=== PATIENT | female | born 1990 | race Caucasian/White ===

== ENCOUNTER 2018-09-06 16:39 | Inpatient (IN) ==
--- NOTE | 2018-09-06 17:25 | ED ---
History of Present Illness Primary Care Physician: care in [place] Chief Complaint: Contractions History of Present Illness: 28-year-old at 32 weeks and 6 days with a final EDC of October 26, 2018 presents to OB ED complaining of contractions. Note Stratter educational sign language interpreter present for interview patient is Lao-speaking. Patient resides in [place] to deliver in [place] no records available however she appears to be reliable states complicated by gestational diabetes for which she takes metformin. Her other deliveries have been at term uneventful. States she presented to [facility] for delivery Weeks Gestation:: 32 Para: 3 : 6 Review of Systems All other systems reviewed negative except as stated in HPI Medications and Allergies Active Medications: Active Medications Lactated Ringer's (Lr 1000 Ml Inj) 1,000 mls @ 0 mls/hr IV.SIG BOLUS ONE Stop: 09/06/18 17:19 Allergies Allergy/AdvReac Type Severity Reaction Status Date / Time No Known Allergies Allergy Verified 09/06/18 17:08 Exam Vital signs: Intake & Output 09/05/18 09/06/18 09/06/18 18:59 06:59 18:59 Weight 81.647 kg - Constitutional moderate distress - Routine HEENT Exam Head: Present: normocephalic ENT: Present: mucous membranes moist - Routine Neck Exam Present: supple - Routine Chest/Breast/Axilla Exam Chest wall: Absent: tenderness Breast: Absent: tenderness - Routine Respiratory Exam Present: CTA bilaterally - Routine Cardiovascular Exam Present: RRR - Routine Abdominal Exam Present: soft (Gravid/ heart rate category 1) - Routine Exam Comments: Closed 50% effaced out of pelvis -4 (please note proceeded to perform pelvic exam immediately patient appeared to be quite uncomfortable blowing through contractions therefore FFN deferred) Results - Labs CBC & Chem 7: 09/06/18 17:35 Assessment and Plan - Diagnosis (1) uterine contractions in third trimester, antepartum Code(s): O47.03 - False labor before 37 completed weeks of gestation, third trimester Status: Acute (2) Insufficient care in third trimester Code(s): O09.33 - Supervision of with insufficient care, third trimester Status: Acute (3) Gestational diabetes Code(s): O24.419 - Gestational diabetes mellitus in , unspecified control Status: Acute Qualifiers: Gestational diabetes mellitus control: oral hypoglycemic-controlled (4) 32 weeks gestation of Code(s): Z3A.32 - 32 weeks gestation of Status: Acute - Plan Patient made aware plan IV fluids/terbutaline and reassess. Received call from ANALI random Accu-Chek blood sugar [phone] this time called Tracie back interpreting-patient now reports that she is only had 5 visits in [place] she is unaware of the name of the clinic today with the doctor or the hospital where she is to deliver. She stated that she was discharged from care on July 14. Plan insulin regular subcu 8 units reassess-check urine for ketones. A long protracted discussion with the patient it is critical that she continues her care we will provide her with a provider here that would take her at any gestational age, there are concerns since the baby appears to be an LGA since her size greater than dates. Patient was made aware with poorly controlled gestational diabetes risk of maternal morbidity mortality- risk of loss i.e. Discharge Plan - Physicians Team ED Provider: Nuria Boateng Primary Care Provider: NOT REQUIRED, - Discharge Instructions Print Language: Lao
[2018-09-06 18:12] LABS: Baso % (Auto) 0.2 % (0.0-2.0); Eos % (Auto) 0.1 % (0.0-4.0); Hematocrit 34.1 % (35.0-46.0); Hemoglobin 11.7 gm/dL (11.6-15.3); Lymph % (Auto) 11.4 % (9.0-44.0); Mean Corpuscular HGB Conc 34.2 % (32.0-36.0); Mean Corpuscular Hemoglobin 28.5 pg (27.0-34.0); Mean Corpuscular Volume 83.3 fL (80.0-100.0); Mean Platelet Volume 8.4 fL (7.0-11.0); Mono # (Auto) 0.5 th/mm3 (0.0-0.9); Mono % (Auto) 5.5 % (0.0-8.0); Neut # (Auto) 7.4 th/mm3 (1.8-7.7); Neut % (Auto) 82.8 % (16.0-70.0); Platelet Count 208 th/mm3 (150-450); Red Cell Distribution Width 14.1 % (11.6-17.2); White Blood Count 8.9 th/mm3 (4.0-11.0)
[2018-09-06 18:18] LABS: Bilirubin,Urine Negative (Negative); Clarity,Urine Clear (Clear); Color,Urine Straw (Yellw/Straw); Glucose,Urine (UA) 500 or Greater mg/dL (Negative); Leukocyte Esterase,Urine Negative (Negative); Nitrite,Urine Negative (Negative); Specific Gravity,Urine 1.029 (1.002-1.035); Squamous Epithelial Cell,Urine <1 /hpf (0-5)
[2018-09-06 19:25] LABS: Rubella IgG Antibody 45.7 IU/mL (10.0-500.0)
[2018-09-06 19:28] LABS: Hepatitits B Surface Antigen Nonreactive (Nonreactive)
[2018-09-06 20:02] LABS: Hepatitis A IgM Antibody Nonreactive (Nonreactive)
[2018-09-06] MEDS ORDERED: Dextrose 50% in Water 50 ML Vial IV.PUSH PRN (20:19)
[2018-09-06] MEDS ORDERED: Penicillin G Potassium Inj 5,000,000 UNIT in Sodium Chloride 0.9% Inj 100 ML IV.SIG ONE (20:41)
[2018-09-06] MEDS ORDERED: Acetaminophen 325 MG Tablet PO PRN (20:41)
--- NOTE | 2018-09-06 20:52 | P.HPOB ---
Patient Name: Renate Bustillos Date of : 89 Patient Status: Emergency Emergency Provider: Nuria Boateng Date: 09/06/18 17:20 Initialization Date: 09/06/18 17:20 History of Present Illness Primary Care Physician: care in [place] Chief Complaint: Contractions History of Present Illness: 28-year-old at 32 weeks and 6 days with a final EDC of October 26, 2018 presents to OB ED complaining of contractions. Note Stratter hot frame tender present for interview patient is Congolese-speaking. Note after spent spending a significant amount of time with the patient she is bilingual . There are several discrepancies in her history . She first reported she was at [place] , she then now reports her states that her uncle was shot who is from [place] , her care is sketchy , states that she was told not to come back for any further care , earlier told us that she resides in [place] now states that she resides in [facility] . No records available. complicated by gestational diabetes for which she takes metformin, but later discovered that her metformin was given to her prior to and she had been taking it but not prescribed during the . Her other deliveries have been at term uneventful. While in triage managing her contractions her blood sugar was noted to be elevated subsequently given 8 units of regular insulin subQ with no response blood sugar was 277 repeated with 6 units insulin IV and blood glucose was still greater than 240. At this time proceeded to admit to manage blood sugars and possible risk for labor. Weeks Gestation:: 32 Para: 3 : 6 Review of Systems All other systems reviewed negative except as stated in HPI Medications and Allergies Active Medications: Active Medications Lactated Ringer's (Lr 1000 Ml Inj) 1,000 mls @ 0 mls/hr IV.SIG BOLUS ONE Stop: 09/06/18 17:19 Allergies Allergy/AdvReac Type Severity Reaction Status Date / Time No Known Allergies Allergy Verified 09/06/18 17:08 Exam Vital signs: Intake & Output 09/05/18 09/06/18 09/06/18 18:59 06:59 18:59 Weight 81.647 kg - Constitutional moderate distress - Routine HEENT Exam Head: Present: normocephalic ENT: Present: mucous membranes moist - Routine Neck Exam Present: supple - Routine Chest/Breast/Axilla Exam Chest wall: Absent: tenderness Breast: Absent: tenderness - Routine Respiratory Exam Present: CTA bilaterally - Routine Cardiovascular Exam Present: RRR - Routine Abdominal Exam Present: soft (Gravid/ heart rate category 1) - Routine Exam Comments: Closed 50% effaced out of pelvis -4 (please note proceeded to perform pelvic exam immediately patient appeared to be quite uncomfortable blowing through contractions therefore FFN deferred) Results - Labs CBC & Chem 7: 09/06/18 17:35 Assessment and Plan - Diagnosis (1) uterine contractions in third trimester, antepartum Code(s): O47.03 - False labor before 37 completed weeks of gestation, third trimester Status: Acute (2) Insufficient care in third trimester Code(s): O09.33 - Supervision of with insufficient care, third trimester Status: Acute (3) Gestational diabetes Code(s): O24.419 - Gestational diabetes mellitus in , unspecified control Status: Acute Qualifiers: Gestational diabetes mellitus control: oral hypoglycemic-controlled (4) 32 weeks gestation of Code(s): Z3A.32 - 32 weeks gestation of Status: Acute Plan: -Admit -Manage blood sugar -Manage contractions -Diabetic counseling -manager of software development consult Addendum-patient has received a total of 14 units of regular insulin portion given IV apportion given subcutaneous without any significant drop in her blood glucose, her care is sketchy at best and quite insufficient and limited. The only data that she gives which is for certain per patient is her final EDC although she appears LGA. Ultrasound planned in the a.m. sooner if labor signs progress. I have deferred giving her betamethasone because when she presented all the contractions present not in labor and her blood sugars are quite high but if any signs of labor or progression noted will proceed to administer betamethasone and monitor blood sugars closely Patient reported to RN a gush of fluid-Amnisure ordered. Discharge Plan - Physicians Team ED Provider: Nuria Boateng Primary Care Provider: NOT REQUIRED,
[2018-09-06] MEDS ORDERED: Penicillin G Sodium Inj 2,500,000 UNITS in Sodium Chlor 0.9% Inj 100 ML IV.SIG SCH (21:00)
[2018-09-06] MEDS: NIFEdipine 10 MG Capsule PO SCH ×4 (21:00→22:03)
--- NOTE | 2018-09-06 21:54 | P.OBGPN ---
Patient and her have questions-questions about delivery-they were made aware with delivery risk of retinopathy of prematurity, intraventricular hemorrhage respiratory distress syndrome, necrotizing enterocolitis ,cerebral palsy ,NICU admission and further evaluation possible intubation-they were made aware at this time administering p.o. Procardia however deferring betamethasone until patient's blood glucose is improved to decrease the risk of patient developing iatrogenic DKA
[2018-09-06] MEDS ORDERED: Mag Sulf/Water 40 gm/1000 ml 40 GM/1,000 ML BAG IV.CONT ONE (22:43)
[2018-09-06] MEDS ORDERED: Mag Sulf/Water 4 gm/100 ml 100 ML IV.SIG ONE ×3 (22:43→23:07)
[2018-09-06] MEDS: Mag Sulf/Water 40 gm/1000 ml 40 GM/1,000 ML BAG IV.CONT SCH (22:56)
[2018-09-06] MEDS ORDERED: Mag Sulf/Water 40 gm/1000 ml 40 GM/1,000 ML BAG IV.CONT SCH (23:02)
[2018-09-06] MEDS ORDERED: Betamethasone Sod Phos/Acetate Inj 30 MG/5 ML Vial IM ONE (23:09)
--- NOTE | 2018-09-06 23:49 | P.OBGPN ---
MD called for delivery-patient complains of urge to push. Delivery team present patient is in severe distress-however pelvic exam cervix is still closed posterior. Repeat evaluation no uterine tenderness that would be consistent with clinical abruption/no chorio WBC within normal however contractions are present. Blood glucose now 180. Steroids were given in anticipation of possible imminent delivery. Ordered regular insulin 6 units IV push. Thus far she has had a total of 26 units of regular insulin. We will also administer Vistaril 100 IM if there is an anxiety component may be will help ,and continue magnesium sulfate. Limited ultrasound SIUP /Vertex AMANDA 14.4 / posterior placenta /EFW 6 pounds or 2725 g /cervical length 39 mm. Plan complete OB ultrasound in the a.m.
[2018-09-07] MEDS: Insulin NovoLIN Regular Correctional Sugar Inj SQ SCH ×2 (00:23→06:40)
[2018-09-07] MEDS: Penicillin G Sodium Inj 2,500,000 UNITS in Sodium Chlor 0.9% Inj 100 ML IV.SIG SCH ×3 (00:25→08:53)
[2018-09-07 00:55] LABS: Amphetamine Screen,Urine Neg (Neg); Barbiturate Screen,Urine Neg (Neg); Cannabinoid Screen,Urine Neg (Neg); Cocaine Screen,Urine Neg (Neg)
[2018-09-07 00:59] LABS: Opiate Screen,Urine Neg (Neg)
[2018-09-07] MEDS: Prenatal Vit/Ca/Iron/Folic Acid Tablet PO SCH (08:53)
--- NOTE | 2018-09-07 08:55 | P.OBANTE ---
Subjective Interval History: Pt seen and evaluated this morning. at bedside and providing some history. Pt states she has been a diabetic for 2 year prior to this . Her regular OB did not feel comfortable taking care of her due to her high risk and referred her to [facility] in [place], at . She was then seen several times every 15 days for BS control. She has been on Metformin and nothing else. She then lost her Medicaid and was unable to continue care. About 3 weeks ago she started not feeling well. This morning she is feeling better, feeling baby move, no LOF, no contractions. Antepartum ROS: Reports: movement normal Denies: Loss of fluid, Vaginal bleeding, Contractions Objective Vital Signs and I&O: Vital Signs 09/06/18 17:10 09/06/18 17:25 09/06/18 17:30 Temperature 98.4 F Pulse Rate 99 H 82 Respiratory Rate 18 Blood Pressure 136/71 09/06/18 18:25 09/06/18 18:35 09/06/18 19:30 Temperature Pulse Rate 119 H 114 H Respiratory Rate 18 Blood Pressure 09/06/18 19:40 09/06/18 20:11 09/06/18 20:35 Temperature Pulse Rate 111 H 101 H 109 H Respiratory Rate 18 Blood Pressure 129/65 09/06/18 20:40 09/06/18 20:45 09/06/18 20:55 Temperature Pulse Rate 100 H 111 H 108 H Respiratory Rate Blood Pressure 09/06/18 21:20 09/06/18 21:30 09/06/18 21:35 Temperature Pulse Rate 111 H 105 H 106 H Respiratory Rate Blood Pressure 140/68 09/06/18 22:05 09/06/18 22:10 09/06/18 22:36 Temperature Pulse Rate 111 H 113 H 103 H Respiratory Rate Blood Pressure 140/72 09/06/18 22:37 09/06/18 22:40 09/06/18 22:45 Temperature 98.0 F Pulse Rate 101 H Respiratory Rate 20 Blood Pressure 141/63 H 09/06/18 23:00 09/06/18 23:05 09/06/18 23:10 Temperature Pulse Rate 104 H 104 H 108 H Respiratory Rate Blood Pressure 130/69 134/68 133/70 09/06/18 23:25 09/06/18 23:40 09/06/18 23:45 Temperature Pulse Rate 107 H 111 H 105 H Respiratory Rate Blood Pressure 109/43 L 134/107 H 131/58 L 09/06/18 23:50 09/07/18 00:00 09/07/18 00:15 Temperature Pulse Rate 96 H 104 H 106 H Respiratory Rate Blood Pressure 129/68 09/07/18 00:18 09/07/18 00:25 09/07/18 00:35 Temperature Pulse Rate 109 H 103 H Respiratory Rate 20 Blood Pressure 151/67 H 09/07/18 00:40 09/07/18 00:45 09/07/18 00:50 Temperature Pulse Rate 102 H 102 H 104 H Respiratory Rate Blood Pressure 09/07/18 00:55 09/07/18 01:05 09/07/18 01:25 Temperature Pulse Rate 100 H 100 H 99 H Respiratory Rate Blood Pressure 127/54 L 131/51 L 09/07/18 01:35 09/07/18 01:40 09/07/18 01:45 Temperature Pulse Rate 101 H 99 H 99 H Respiratory Rate Blood Pressure 09/07/18 02:05 09/07/18 02:10 09/07/18 02:20 Temperature Pulse Rate 98 H 104 H 107 H Respiratory Rate Blood Pressure 125/60 09/07/18 02:25 09/07/18 02:30 09/07/18 03:25 Temperature Pulse Rate 95 H 99 H 106 H Respiratory Rate Blood Pressure 120/72 121/51 L 130/64 09/07/18 03:35 09/07/18 03:40 09/07/18 03:50 Temperature Pulse Rate 105 H 103 H 113 H Respiratory Rate Blood Pressure 09/07/18 03:55 09/07/18 04:25 09/07/18 04:30 Temperature 98.2 F Pulse Rate 102 H 94 H Respiratory Rate 16 Blood Pressure 126/67 09/07/18 04:35 09/07/18 04:40 09/07/18 05:15 Temperature Pulse Rate 92 H 94 H 96 H Respiratory Rate Blood Pressure 122/52 L 123/69 09/07/18 05:35 09/07/18 05:55 09/07/18 06:50 Temperature Pulse Rate 94 H 95 H 94 H Respiratory Rate Blood Pressure 119/63 120/66 09/07/18 06:55 09/07/18 07:10 09/07/18 07:20 Temperature Pulse Rate 94 H 96 H 96 H Respiratory Rate Blood Pressure 118/56 L 09/07/18 07:25 09/07/18 07:30 09/07/18 08:25 Temperature 99.2 F Pulse Rate 97 H 95 H Respiratory Rate 16 Blood Pressure 113/55 L 115/50 L Intake & Output 09/06/18 09/07/18 09/07/18 18:59 06:59 18:59 Intake Total 2400 / 2400 Balance 2400 / 2400 Weight 81.647 kg Intake: IV 2400 / 2400 LR 1000 mL Inj 1,000 ML @ 125 1000 / 1000 mls/hr IV.CONT .Q8H [facility] Rx#: [id number] LR 1000 mL Inj 1,000 ML @ Wide 1000 / 1000 Open IV.SIG BOLUS ONE Rx#: [id number] Magnesium Sulfate/Water 4 gm/ 100 / 100 100 ml Premix 100 ML @ 0 mls/hr IV.SIG .STK-MED ONE Rx#: [id number] Pfizerpen-G Inj 5,000,000 UNIT 100 / 100 In NS Inj 100 ML @ 200 mls/hr IV.SIG ONCE ONE Rx#:[id number] Penicillin G Sodium Inj 2,500, 200 / 200 000 UNITS In NS Inj 100 ML @ 200 mls/hr IV.SIG Q4H [facility] Rx#: [id number] Lab and Micro Results: Laboratory Results - last 24 hr 09/06/18 09/06/18 09/06/18 17:35 17:35 17:35 WBC 8.9 RBC 4.10 Hgb 11.7 Hct 34.1 L MCV 83.3 MCH 28.5 MCHC 34.2 RDW 14.1 Plt Count 208 MPV 8.4 Neut % (Auto) 82.8 H Lymph % (Auto) 11.4 [place] % (Auto) 5.5 Eos % (Auto) 0.1 Baso % (Auto) 0.2 Neut # (Auto) 7.4 Lymph # (Auto) 1.0 [place] # (Auto) 0.5 Eos # (Auto) 0.0 Baso # (Auto) 0.0 WBC Differential . Differential Comment Auto diff final POC Glucose Urine Color Urine Clarity Urine pH Ur Specific [place] Urine Protein Urine Glucose (UA) Urine Ketones Urine Occult Blood Urine Nitrate Urine Bilirubin Urine Urobilinogen Ur Leukocyte Esterase Urine RBC Urine WBC Ur Squamous Epith Cells Micro UA Comment Ur Microscopic Review Urine Culture Comments Urine Opiates Screen Ur Barbiturates Screen Ur Amphetamines Screen U Benzodiazepines Scrn Urine Cocaine Screen U Cannabinoids Screen Chlam trachomat DNA PCR Hepatitis A IgM Ab Nonreactive Hep Bs Antigen Nonreactive Hep B Core IgM Ab Nonreactive Hep C IgG Ab Nonreactive HIV 1&2 Ab/P24 Ag 4thGn Nonreactive N.gonorrhoeae DNA (PCR) Rubella Immunity Screen Immune Rubella Ab, Quant 45.7 Blood Type Blood Type Recheck Antibody Screen 09/06/18 09/06/18 09/06/18 17:35 17:35 17:35 WBC RBC Hgb Hct MCV MCH MCHC RDW Plt Count MPV Neut % (Auto) Lymph % (Auto) [place] % (Auto) Eos % (Auto) Baso % (Auto) Neut # (Auto) Lymph # (Auto) [place] # (Auto) Eos # (Auto) Baso # (Auto) WBC Differential Differential Comment POC Glucose 304 H Urine Color Urine Clarity Urine pH Ur Specific [place] Urine Protein Urine Glucose (UA) Urine Ketones Urine Occult Blood Urine Nitrate Urine Bilirubin Urine Urobilinogen Ur Leukocyte Esterase Urine RBC Urine WBC Ur Squamous Epith Cells Micro UA Comment Ur Microscopic Review Urine Culture Comments Urine Opiates Screen Ur Barbiturates Screen Ur Amphetamines Screen U Benzodiazepines Scrn Urine Cocaine Screen U Cannabinoids Screen Chlam trachomat DNA PCR Not detected Hepatitis A IgM Ab Hep Bs Antigen Hep B Core IgM Ab Hep C IgG Ab HIV 1&2 Ab/P24 Ag 4thGn N.gonorrhoeae DNA (PCR) Not detected Rubella Immunity Screen Rubella Ab, Quant Blood Type O Positive Blood Type Recheck Required Antibody Screen Negative 09/06/18 09/06/18 09/06/18 17:35 17:35 17:36 WBC RBC Hgb Hct MCV MCH MCHC RDW Plt Count MPV Neut % (Auto) Lymph % (Auto) [place] % (Auto) Eos % (Auto) Baso % (Auto) Neut # (Auto) Lymph # (Auto) [place] # (Auto) Eos # (Auto) Baso # (Auto) WBC Differential Differential Comment POC Glucose 303 H Urine Color Straw Urine Clarity Clear Urine pH 6.0 Ur Specific [place] 1.029 Urine Protein Negative Urine Glucose (UA) 500 or greater Urine Ketones 80 or greater H Urine Occult Blood Negative Urine Nitrate Negative Urine Bilirubin Negative Urine Urobilinogen Less than 2 Ur Leukocyte Esterase Negative Urine RBC 1 Urine WBC Less than 1 Ur Squamous Epith Cells <1 Micro UA Comment Culture not ind Ur Microscopic Review Not Reportable Urine Culture Comments Culture not ind Urine Opiates Screen Neg Ur Barbiturates Screen Neg Ur Amphetamines Screen Neg U Benzodiazepines Scrn Neg Urine Cocaine Screen Neg U Cannabinoids Screen Neg [place]lam trachomat DNA PCR Hepatitis A IgM Ab Hep Bs Antigen Hep B Core IgM Ab Hep C IgG Ab HIV 1&2 Ab/P24 Ag 4thGn N.gonorrhoeae DNA (PCR) Rubella Immunity Screen Rubella Ab, Quant Blood Type Blood Type Recheck Antibody Screen 09/06/18 09/06/18 09/06/18 18:56 20:10 21:14 WBC RBC Hgb Hct MCV MCH MCHC RDW Plt Count MPV Neut % (Auto) Lymph % (Auto) [place] % (Auto) Eos % (Auto) Baso % (Auto) Neut # (Auto) Lymph # (Auto) [place] # (Auto) Eos # (Auto) Baso # (Auto) WBC Differential Differential Comment POC Glucose 270 H 244 H 213 H Urine Color Urine Clarity Urine pH Ur Specific [place] Urine Protein Urine Glucose (UA) Urine Ketones Urine Occult Blood Urine Nitrate Urine Bilirubin Urine Urobilinogen Ur Leukocyte Esterase Urine RBC Urine WBC Ur Squamous Epith Cells Micro UA Comment Ur Microscopic Review Urine Culture Comments Urine Opiates Screen Ur Barbiturates Screen Ur Amphetamines Screen U Benzodiazepines Scrn Urine Cocaine Screen U Cannabinoids Screen [place]lam trachomat DNA PCR Hepatitis A IgM Ab Hep Bs Antigen Hep B Core IgM Ab Hep C IgG Ab HIV 1&2 Ab/P24 Ag 4thGn N.gonorrhoeae DNA (PCR) Rubella Immunity Screen Rubella Ab, Quant Blood Type Blood Type Recheck Antibody Screen 09/06/18 09/06/18 09/07/18 22:06 23:24 00:19 WBC RBC Hgb Hct MCV MCH MCHC RDW Plt Count MPV Neut % (Auto) Lymph % (Auto) [place] % (Auto) Eos % (Auto) Baso % (Auto) Neut # (Auto) Lymph # (Auto) [place] # (Auto) Eos # (Auto) Baso # (Auto) WBC Differential Differential Comment POC Glucose 180 H 180 H 171 H Urine Color Urine Clarity Urine pH Ur Specific [place] Urine Protein Urine Glucose (UA) Urine Ketones Urine Occult Blood Urine Nitrate Urine Bilirubin Urine Urobilinogen Ur Leukocyte Esterase Urine RBC Urine WBC Ur Squamous Epith Cells Micro UA Comment Ur Microscopic Review Urine Culture Comments Urine Opiates Screen Ur Barbiturates Screen Ur Amphetamines Screen U Benzodiazepines Scrn Urine Cocaine Screen U Cannabinoids Screen [place]lam trachomat DNA PCR Hepatitis A IgM Ab Hep Bs Antigen Hep B Core IgM Ab Hep C IgG Ab HIV 1&2 Ab/P24 Ag 4thGn N.gonorrhoeae DNA (PCR) Rubella Immunity Screen Rubella Ab, Quant Blood Type Blood Type Recheck Antibody Screen 09/07/18 09/07/18 09/07/18 04:57 05:50 06:25 WBC RBC Hgb Hct MCV MCH MCHC RDW Plt Count MPV Neut % (Auto) Lymph % (Auto) [place] % (Auto) Eos % (Auto) Baso % (Auto) Neut # (Auto) Lymph # (Auto) [place] # (Auto) Eos # (Auto) Baso # (Auto) WBC Differential Differential Comment POC Glucose 232 H 210 H 203 H Urine Color Urine Clarity Urine pH Ur Specific [place] Urine Protein Urine Glucose (UA) Urine Ketones Urine Occult Blood Urine Nitrate Urine Bilirubin Urine Urobilinogen Ur Leukocyte Esterase Urine RBC Urine WBC Ur Squamous Epith Cells Micro UA Comment Ur Microscopic Review Urine Culture Comments Urine Opiates Screen Ur Barbiturates Screen Ur Amphetamines Screen U Benzodiazepines Scrn Urine Cocaine Screen U Cannabinoids Screen [place]lam trachomat DNA PCR Hepatitis A IgM Ab Hep Bs Antigen Hep B Core IgM Ab Hep C IgG Ab HIV 1&2 Ab/P24 Ag 4thGn N.gonorrhoeae DNA (PCR) Rubella Immunity Screen Rubella Ab, Quant Blood Type Blood Type Recheck Antibody Screen 09/07/18 07:06 WBC RBC Hgb Hct MCV MCH MCHC RDW Plt Count MPV Neut % (Auto) Lymph % (Auto) [place] % (Auto) Eos % (Auto) Baso % (Auto) Neut # (Auto) Lymph # (Auto) [place] # (Auto) Eos # (Auto) Baso # (Auto) WBC Differential Differential Comment POC Glucose 188 H Urine Color Urine Clarity Urine pH Ur Specific [place] Urine Protein Urine Glucose (UA) Urine Ketones Urine Occult Blood Urine Nitrate Urine Bilirubin Urine Urobilinogen Ur Leukocyte Esterase Urine RBC Urine WBC Ur Squamous Epith Cells Micro UA Comment Ur Microscopic Review Urine Culture Comments Urine Opiates Screen Ur Barbiturates Screen Ur Amphetamines Screen U Benzodiazepines Scrn Urine Cocaine Screen U Cannabinoids Screen [place]lam trachomat DNA PCR Hepatitis A IgM Ab Hep Bs Antigen Hep B Core IgM Ab Hep C IgG Ab HIV 1&2 Ab/P24 Ag 4thGn N.gonorrhoeae DNA (PCR) Rubella Immunity Screen Rubella Ab, Quant Blood Type Blood Type Recheck Antibody Screen Physical Exam: GENERAL: Well-nourished, well-developed patient. Calm CARDIOVASCULAR: Regular rate and rhythm without murmurs, gallops, or rubs. RESPIRATORY: Breath sounds equal bilaterally. No accessory muscle use. ABDOMEN/GI: Abdomen soft, non-tender. EXTREMITIES: No cyanosis or edema, non-tender, without signs of DVT. Assessment and Plan - Diagnosis (1) Maternal pregestational diabetes classes B through R, antepartum Code(s): O24.319 - Unspecified pre-existing diabetes mellitus in , unspecified trimester Status: Acute (2) 32 weeks gestation of Code(s): Z3A.32 - 32 weeks gestation of Status: Acute (3) uterine contractions in third trimester, antepartum Code(s): O47.03 - False labor before 37 completed weeks of gestation, third trimester Status: Acute (4) Insufficient care in third trimester Code(s): O09.33 - Supervision of with insufficient care, third trimester Status: Acute - Plan 28 yr old at 33/0 with uncontrolled pregestational diabetes and limited care presented yesterday with contractions. S/p magnesium sulfate, Procardia, and betamethasone. Plan: - Continue NPH 10 units BID - Continue Novolog insulin sliding scale (medium) - Continue IVF LR at 75ml/hr - Continue Magnesium Sulfate - Complete OB US ordered this morning - CM consulted - Will attempt to obtain records from [facility]
[2018-09-07] MEDS: Sod Chloride 0.9% Inj 1,000 ML IV.CONT SCH (10:55)
[2018-09-07] MEDS ORDERED: Dextrose 50% in Water 50 ML Vial IV.PUSH PRN (11:10)
[2018-09-07] MEDS ORDERED: INSULIN REGULAR IV.CONT PRN (11:10)
[2018-09-07] MEDS ORDERED: SODIUM CHLOR 0.9% IV.CONT PRN (11:10)
[2018-09-07] MEDS ORDERED: fentaNYL Citrate Inj 100 MCG/2 ML Ampul IV.PUSH ONE (11:34)
[2018-09-07] MEDS: Insulin Regular (For Infusion) 100 UNIT in Sodium Chlor 0.9% Inj 99 ML IV.CONT PRN (12:20)
[2018-09-07] MEDS: Mag Sulf/Water 40 gm/1000 ml 40 GM/1,000 ML BAG IV.CONT SCH (17:41)
[2018-09-07] MEDS ORDERED: Betamethasone Sod Phos/Acetate Inj 30 MG/5 ML Vial IM ONE (20:00)
[2018-09-08] MEDS: Insulin Regular (For Infusion) 100 UNIT in Sodium Chlor 0.9% Inj 99 ML IV.CONT PRN (00:40)
[2018-09-08] MEDS: Sod Chloride 0.9% Inj 1,000 ML IV.CONT SCH ×2 (00:40→18:15)
[2018-09-08] MEDS ORDERED: Dextrose 10% in Water Inj 500 ML IV.SIG ONE (02:45)
[2018-09-08] MEDS: Mag Sulf/Water 40 gm/1000 ml 40 GM/1,000 ML BAG IV.CONT SCH (06:47)
[2018-09-08] MEDS: Prenatal Vit/Ca/Iron/Folic Acid Tablet PO SCH (08:14)
--- NOTE | 2018-09-08 08:47 | P.OBANTE ---
Subjective Interval History: Pt has no complaints today, she's feeling better. Denies any contractions this morning, no gush of fluid, no bleeding. Eating/ drinking ok. Antepartum ROS: Denies: Loss of fluid, Vaginal bleeding, Contractions Objective Vital Signs and I&O: Vital Signs 09/07/18 09:25 09/07/18 09:45 09/07/18 10:15 Temperature Pulse Rate 97 H 101 H 101 H Respiratory Rate Blood Pressure 111/62 118/61 123/60 09/07/18 10:25 09/07/18 11:00 09/07/18 11:30 Temperature 98.1 F Pulse Rate 103 H 108 H 104 H Respiratory Rate 16 16 Blood Pressure 126/68 130/50 L 09/07/18 12:00 09/07/18 12:05 09/07/18 12:45 Temperature Pulse Rate 104 H 107 H 111 H Respiratory Rate Blood Pressure 133/76 122/69 09/07/18 12:55 09/07/18 13:25 09/07/18 13:27 Temperature Pulse Rate 108 H 109 H Respiratory Rate 16 Blood Pressure 135/65 09/07/18 13:40 09/07/18 14:05 09/07/18 14:25 Temperature Pulse Rate 107 H 103 H 103 H Respiratory Rate Blood Pressure 131/54 L 09/07/18 14:30 09/07/18 14:40 09/07/18 14:45 Temperature Pulse Rate 103 H 101 H 104 H Respiratory Rate 16 Blood Pressure 124/59 L 09/07/18 15:15 09/07/18 15:25 09/07/18 15:50 Temperature Pulse Rate 102 H 110 H 103 H Respiratory Rate Blood Pressure 123/55 L 123/55 L 09/07/18 15:55 09/07/18 16:15 09/07/18 16:22 Temperature 99.2 F Pulse Rate 106 H 105 H Respiratory Rate 14 Blood Pressure 124/63 09/07/18 16:25 09/07/18 17:20 09/07/18 17:30 Temperature Pulse Rate 97 H 106 H 101 H Respiratory Rate 16 Blood Pressure 116/64 126/64 09/07/18 18:25 09/07/18 18:30 09/07/18 18:55 Temperature Pulse Rate 101 H 101 H 101 H Respiratory Rate Blood Pressure 123/60 09/07/18 19:25 09/07/18 19:46 09/07/18 19:50 Temperature 98.9 F Pulse Rate 101 H 97 H Respiratory Rate 18 Blood Pressure 123/64 09/07/18 20:15 09/07/18 20:20 09/07/18 20:25 Temperature Pulse Rate 101 H 98 H 97 H Respiratory Rate Blood Pressure 130/64 09/07/18 20:45 09/07/18 21:05 09/07/18 21:10 Temperature Pulse Rate 100 H 102 H 95 H Respiratory Rate Blood Pressure 119/61 121/67 09/07/18 21:28 09/07/18 21:30 09/07/18 21:40 Temperature Pulse Rate 99 H 98 H 103 H Respiratory Rate 18 Blood Pressure 126/66 09/07/18 22:30 09/07/18 22:35 09/07/18 22:40 Temperature Pulse Rate 94 H 100 H 100 H Respiratory Rate 18 Blood Pressure 118/64 09/07/18 22:45 09/07/18 23:00 09/07/18 23:15 Temperature Pulse Rate 97 H 98 H 99 H Respiratory Rate Blood Pressure 119/63 09/07/18 23:25 09/07/18 23:30 09/07/18 23:35 Temperature 98.1 F Pulse Rate 94 H 102 H 92 H Respiratory Rate 18 Blood Pressure 122/63 09/07/18 23:40 09/08/18 00:00 09/08/18 00:25 Temperature Pulse Rate 99 H 100 H 101 H Respiratory Rate Blood Pressure 111/83 09/08/18 00:30 09/08/18 00:45 09/08/18 01:05 Temperature Pulse Rate 88 90 89 Respiratory Rate Blood Pressure 110/67 118/64 09/08/18 01:20 09/08/18 01:28 09/08/18 01:30 Temperature Pulse Rate 88 91 H 88 Respiratory Rate 18 Blood Pressure 118/67 09/08/18 02:20 09/08/18 02:30 09/08/18 03:15 Temperature Pulse Rate 88 93 H 91 H Respiratory Rate 18 Blood Pressure 118/67 116/61 118/68 09/08/18 03:20 09/08/18 03:25 09/08/18 03:29 Temperature 98.6 F Pulse Rate 90 95 H Respiratory Rate 18 Blood Pressure 09/08/18 03:30 09/08/18 03:35 09/08/18 03:45 Temperature Pulse Rate 89 92 H 95 H Respiratory Rate Blood Pressure 117/62 09/08/18 03:55 09/08/18 04:25 09/08/18 04:30 Temperature Pulse Rate 89 95 H 100 H Respiratory Rate Blood Pressure 118/72 113/63 09/08/18 04:40 09/08/18 04:45 09/08/18 04:50 Temperature Pulse Rate 84 83 85 Respiratory Rate Blood Pressure 09/08/18 04:55 09/08/18 05:00 09/08/18 05:05 Temperature Pulse Rate 85 84 84 Respiratory Rate Blood Pressure 109/63 09/08/18 05:25 09/08/18 05:30 09/08/18 05:50 Temperature Pulse Rate 85 84 82 Respiratory Rate Blood Pressure 108/60 09/08/18 06:20 09/08/18 06:25 09/08/18 06:35 Temperature Pulse Rate 85 85 84 Respiratory Rate Blood Pressure 115/58 L 105/59 L 09/08/18 06:50 09/08/18 06:55 09/08/18 07:10 Temperature Pulse Rate 80 82 83 Respiratory Rate Blood Pressure 115/62 09/08/18 07:30 09/08/18 07:45 09/08/18 08:26 Temperature Pulse Rate 81 83 83 Respiratory Rate 17 18 Blood Pressure 113/60 113/63 Intake & Output 09/07/18 09/08/18 09/08/18 18:59 06:59 18:59 Intake Total 1000 / 1000 1100 / 1100 850 / 850 Balance 1000 / 1000 1100 / 1100 850 / 850 Intake: IV 1000 / 1000 1100 / 1100 850 / 850 NovoLIN R (IV Infusion) 100 100 / 100 UNIT In NS Inj 99 ML @ 2 UNITS/ HR 2 mls/hr IV.CONT TITRATE PRN Rx#:[id number] Magnesium Sulfate/Water 40 gm/ 1000 / 1000 850 / 850 1000 ml Premix 40 gm In 1,000 ml @ 2.5 GM/HR 62.5 mls/hr IV. CONT Q24H EDGAR Rx#:[id number] NS Inj 1,000 ML @ 75 mls/hr IV. 1000 / 1000 CONT .[id number] EDGAR Rx#:[id number] Lab and Micro Results: Laboratory Results - last 24 hr 09/06/18 09/07/1809/07/18 17:35 08:45 10:52 POC Glucose 220 H 242 H RPR Nonreactive 09/07/18 09/07/18 09/07/18 12:23 13:25 14:41 POC Glucose 241 H 245 H 254 H RPR 09/07/18 09/07/18 09/07/18 16:21 17:22 18:28 POC Glucose 209 H 207 H 231 H RPR 09/07/18 09/07/18 09/07/18 19:28 20:29 21:30 POC Glucose 248 H 169 H 157 H RPR 09/07/18 09/07/18 09/08/18 22:30 23:28 00:25 POC Glucose 165 H 154 H 126 H RPR 09/08/18 09/08/18 09/08/18 01:26 02:28 03:26 POC Glucose 111 H 74 98 RPR 09/08/18 09/08/18 09/08/18 04:28 05:30 06:28 POC Glucose 117 H 126 H 135 H RPR 09/08/18 08:23 POC Glucose 99 RPR Physical Exam: GENERAL: Well-nourished, well-developed patient. CARDIOVASCULAR: Regular rate and rhythm without murmurs, gallops, or rubs. RESPIRATORY: Breath sounds equal bilaterally. No accessory muscle use. ABDOMEN/GI: Abdomen soft, non-tender. Membranes: intact Uterine Contractions: absent FHT's: Category: Baseline: 120 Reactive: yes Variability: moderate Decels: no EXTREMITIES: No cyanosis or edema, non-tender, without signs of DVT. Assessment and Plan - Diagnosis (1) Maternal pregestational diabetes classes B through R, antepartum Code(s): O24.319 - Unspecified pre-existing diabetes mellitus in , unspecified trimester Status: Acute (2) 32 weeks gestation of Code(s): Z3A.32 - 32 weeks gestation of Status: Acute (3) uterine contractions in third trimester, antepartum Code(s): O47.03 - False labor before 37 completed weeks of gestation, third trimester Status: Acute (4) Insufficient care in third trimester Code(s): O09.33 - Supervision of with insufficient care, third trimester Status: Acute - Plan 28 yr old at with uncontrolled pre-gestational diabetes and limited care. s/p Betamethasone x 2 (09/06-09/07) s/p Magnesium for 24hrs US showed EFW >97% percentile 2709gr. No anomalies BPP 05/20 Plan: - Start 100 units SQ insulin of 75 units NPH/ 25 units Regular insulin BID - Continue insulin drip 5 units/ hr until dinner w/ BS check q2hr - Continue IVF NS at 75ml/hr -
[2018-09-09] MEDS: Sod Chloride 0.9% Inj 1,000 ML IV.CONT SCH (06:51)
--- NOTE | 2018-09-09 09:33 | P.OBANTE ---
Subjective Interval History: Feeling much better today. No complains this morning. Wants to go home as soon as possible. Discussed she will need to be able to get insulin. She is eating well, ambulating, denies contractions, feeling baby move. Antepartum ROS: Reports: movement normal, Contractions Denies: Loss of fluid, Vaginal bleeding Objective Vital Signs and I&O: Vital Signs 09/08/18 10:25 09/08/18 11:25 09/08/18 12:05 Temperature Pulse Rate 99 H 86 91 H Respiratory Rate Blood Pressure 09/08/18 12:11 09/08/18 12:25 09/08/18 13:55 Temperature 98.2 F Pulse Rate 92 H 92 H 90 Respiratory Rate 17 Blood Pressure 121/67 09/08/18 14:55 09/08/18 15:52 09/08/18 15:55 Temperature 98.6 F Pulse Rate 88 87 90 Respiratory Rate 17 Blood Pressure 118/64 09/08/18 16:55 09/08/18 17:55 09/08/18 18:20 Temperature Pulse Rate 91 H 96 H 95 H Respiratory Rate Blood Pressure 09/08/18 19:50 09/08/18 19:55 09/08/18 20:19 Temperature Pulse Rate 90 94 H Respiratory Rate 18 Blood Pressure 121/64 09/08/18 20:20 09/08/18 20:25 09/08/18 20:40 Temperature 97.5 F L Pulse Rate 89 96 H 86 Respiratory Rate Blood Pressure 09/09/18 00:05 09/09/18 05:11 09/09/18 05:14 Temperature 98.4 F 98.1 F Pulse Rate 90 83 Respiratory Rate 18 18 Blood Pressure 118/65 122/69 09/09/18 05:15 09/09/18 05:20 09/09/18 05:55 Temperature Pulse Rate 92 H 86 104 H Respiratory Rate Blood Pressure 09/09/18 06:15 09/09/18 06:25 09/09/18 06:30 Temperature Pulse Rate 84 93 H 89 Respiratory Rate Blood Pressure 09/09/18 06:55 09/09/18 07:20 09/09/18 07:39 Temperature 97.8 F Pulse Rate 79 72 Respiratory Rate Blood Pressure 09/09/18 07:41 Temperature Pulse Rate 78 Respiratory Rate 18 Blood Pressure 119/66 Intake & Output 1109/09/18 09/09/18 18:59 06:59 18:59 Intake Total 1850 / 1850 1000 / 1000 Balance 1850 / 1850 1000 / 1000 Intake: IV 1850 / 185 1000 / 1000 Magnesium Sulfate/Water 40 gm/ 850 / 850 1000 ml Premix 40 gm In 1,000 ml @ 2.5 GM/HR 62.5 mls/hr IV. CONT Q24H EDGAR Rx#:[id number] NS Inj 1,000 ML @ 75 mls/hr IV. 1000 / 1000 1000 / 1000 CONT .[id number] EDGAR Rx#:[id number] Lab and Micro Results: Laboratory Results - last 24 hr 09/08/18 09/08/18 09/08/18 10:34 12:02 15:04 POC Glucose 162 H 122 H 172 H 09/08/18 09/08/18 09/08/18 17:02 20:19 22:11 POC Glucose 143 H 127 H 115 H 09/09/18 09/09/18 09/09/18 00:04 02:10 06:17 POC Glucose 123 H 116 H 109 Physical Exam: GENERAL: Well-nourished, well-developed patient. CARDIOVASCULAR: Regular rate and rhythm without murmurs, gallops, or rubs. RESPIRATORY: Breath sounds equal bilaterally. No accessory muscle use. ABDOMEN/GI: Abdomen soft, non-tender. GENITOURINARY: Cervix: closed, 50%, -3 FHT's: Category: 1 Baseline: 140 Reactive: yes Variability: moderate Decels: absent EXTREMITIES: No cyanosis or edema, non-tender, without signs of DVT. Assessment and Plan - Diagnosis (1) Maternal pregestational diabetes classes B through R, antepartum Code(s): O24.319 - Unspecified pre-existing diabetes mellitus in , unspecified trimester Status: Acute (2) 32 weeks gestation of Code(s): Z3A.32 - 32 weeks gestation of Status: Acute (3) uterine contractions in third trimester, antepartum Code(s): O47.03 - False labor before 37 completed weeks of gestation, third trimester Status: Acute (4) Insufficient care in third trimester Code(s): O09.33 - Supervision of with insufficient care, third trimester Status: Acute - Plan 28 yr old at with uncontrolled pre-gestational diabetes and limited care. s/p Betamethasone x 2 (09/06-09/07) s/p Magnesium for 24hrs US showed EFW >97% percentile 2709gr. No anomalies BPP 05/20 Plan: - Continue 90 units SQ insulin NPH and 40 units Regular insulin BID - Working with CM to get insulin for home usage - Education given at bedside on how to administer insulin - [facility] appointment will be [facility] for next week - Anticipate discharge home today
[2018-09-09] MEDS: Prenatal Vit/Ca/Iron/Folic Acid Tablet PO SCH (09:48)
[2018-09-09 16:49] LABS: Hemoglobin A1c 7.9 % (4.3-6.0)
== END 2018-09-09 17:48 | disposition home or self-care (01) ==
LOC: HOBED 16:39 → H2E 20:19 → HOBED 20:20 → H2E 20:59
PROVIDERS: ADMIT Obstetrics & Gynecology; ATTEND Obstetrics & Gynecology

== ENCOUNTER 2018-10-19 08:44 | Inpatient (IN) ==
[2018-10-19] MEDS ORDERED: Sodium Chlor 0.9% Inj 500 ML IV.SIG PRN (09:32)
[2018-10-19] MEDS ORDERED: fentaNYL Citrate Inj 100 MCG/2 ML Ampul IV.PUSH PRN ×2 (09:32)
[2018-10-19] MEDS ORDERED: Naloxone Inj 0.4 MG/ML Vial IV.PUSH PRN ×2 (09:32→12:55)
[2018-10-19] MEDS ORDERED: Sod Chloride 0.9% Inj 1,000 ML IV.CONT PRN (09:32)
[2018-10-19] MEDS ORDERED: Dextrose 50% in Water 50 ML Vial IV.PUSH PRN (09:36)
[2018-10-19] MEDS ORDERED: Oxytocin 30 Units/500ml Premix 30 UNITS/500 ML BAG IV.SIG PRN (09:37)
--- NOTE | 2018-10-19 09:42 | P.HPOB ---
History of Present Illness Primary Care Physician: No Primary Care Physician Chief Complaint: I am here for a History of Present Illness: 28-year-old at 39 weeks presents for secondary to breech presentation. History of type 2 diabetes care at [facility]. Bedside ultrasound Vertex presentation Weeks Gestation:: 39 Para: 3 : 4 - Inpatient Certification I certify that the inpatient services were ordered in accordance with Medicare regulations governing the order. This includes certification that hospital inpatient services are reasonable and necessary and in the case of services not specified as inpatient-only under 42 CFR 419.22(n), that they are appropriately provided as inpatient services in accordance to with the 2-midnight benchmark under 43 CFR 412.3(e) Estimated Total Length of Stay (Days): 2 Plans for Post Hospital Care: Home Review of Systems All other systems reviewed negative except as stated in HPI [facility] - Medical History Medical History: Medical History (Last Updated 10/06/18 @ 19:56 by Donell Couch MD) Gestational diabetes mellitus (GDM) affecting fourth - Tobacco History Smoking Status: Never smoker - Alcohol History How Often Do You Have a Drink Containing Alcohol: Never - Substance Use History Substance History: No History of Abuse - Travel History History of Recent Travel: No Medications and Allergies Active Medications: Active Medications Citric Acid/Sodium Citrate (Sodium Citrate/Citric Acid Liq) 30 ml PO STRATEGY ANALYST [facility] Stop: 10/23/18 09:44 Dextrose (D50w Vial) 50 ml IV.PUSH UNSCH PRN PRN Reason: PER HYPOGLYCEMIA PROTOCOL Fentanyl Citrate (Fentanyl Inj) 50 mcg IV.PUSH Q1H PRN PRN Reason: Pain Scale 3 - 5 Fentanyl Citrate (Fentanyl Inj) 100 mcg IV.PUSH Q1H PRN PRN Reason: PAIN SCALE 6 TO 10 Glucagon (Glucagon Inj) 1 mg OTHER PRN PRN PRN Reason: for Hypoglycemia Protocol Lactated Ringer's (Lr 1000 Ml Inj) 1,000 mls @ 125 mls/hr IV.CONT .Q8H [facility] Lactated Ringer's (Lr 1000 Ml Inj) 1,000 mls @ 3,000 mls/hr IV.SIG UNSCH PRN PRN Reason: compromise or epidural Sodium Chloride (Ns Inj) 500 mls @ 1,000 mls/hr IV.SIG UNSCH PRN PRN Reason: SEE LABEL COMMENTS Sodium Chloride (Ns Inj) 1,000 mls @ 100 mls/hr IV.CONT .Q10H PRN PRN Reason: SEE LABEL COMMENTS Oxytocin (Pitocin 30 Units/Ns 500 Ml Premix) 30 units in 500 mls @ 999 mls/hr IV.SIG BOLUS ONE Stop: 10/19/18 10:02 Oxytocin (Pitocin 30 Units/Ns 500 Ml Premix) 30 units in 500 mls @ 2 mls/hr IV.SIG TITRATE PRN; Protocol PRN Reason: For induction of labor Insulin Aspart (Novolog Insulin Correctional Sugar Inj) 0 unit SQ ACHS EDGAR; Protocol Lidocaine HCl (Xylocaine 1% Inj) 0.1 ml I-DERMAL PRN PRN PRN Reason: For IV start Stop: 10/22/18 09:31 Lidocaine HCl (Xylocaine 1% Inj) 10 ml INFILTRATN PRN PRN PRN Reason: For episiotomy repair Stop: 10/21/18 09:31 Mineral Oil (Muri-Lube Oil) 10 ml TOPICAL PRN PRN PRN Reason: PRN perineal massage Naloxone HCl (Narcan Inj) 0.1 mg IV.PUSH Q2M PRN PRN Reason: for opiate reversal Allergies Allergy/AdvReac Type Severity Reaction Status Date / Time No Known Allergies Allergy Verified 09/06/18 17:08 Exam Vital signs: Vital Signs 10/19/18 09:10 10/19/18 09:25 10/19/18 09:32 Temperature 97.9 F Pulse Rate 90 94 H 87 Respiratory Rate 18 Blood Pressure 142/85 H 10/19/18 09:35 Temperature Pulse Rate 86 Respiratory Rate Blood Pressure Narrative: GENERAL: Well-nourished, well-developed patient. SKIN: Warm and dry. HEAD: Normocephalic and atraumatic. EYES: No scleral icterus. No injection or drainage. ENT: No nasal drainage noted. Mucous membranes pink. Airway patent. NECK: Supple, trachea midline. No JVD. CARDIOVASCULAR: Regular rate and rhythm without murmurs, gallops, or rubs. RESPIRATORY: Breath sounds equal bilaterally. No accessory muscle use. BREASTS: Bilateral exam showed no masses , no retractions, no nipple discharge. ABDOMEN/GI: Abdomen soft, non-tender, bowel sounds present, no rebound, no guarding Gravid to 39 weeks size Fundal Height: 39 GENITOURINARY: External Genitalia: intact and normal in appearance BUS glands: Unremarkable Cervix: Soft Dilatation: 3 Effacement: 80% Station: Minus -2 Presentation: Vertex confirmed by ultrasound Membranes: Intact Uterine Contractions: Mild FHT's: Category: 1 Variability: Moderate Decels: [-] EXTREMITIES: No cyanosis or edema. BACK: Nontender without obvious deformity. No CVA tenderness. NEUROLOGICAL: Awake and alert. Motor and sensory grossly within normal limits. Five out of 5 muscle strength in all muscle groups. Normal speech. Caprini VTE Risk Assessment Caprini VTE Risk Assessment: No/Low Risk (score <= 1) Caprini Risk Assessment Model: Point Value = 1 Point Value = 2 Point Value = 3 Point Value = 5 Age 41-60 Minor surgery BMI > 25 kg/m2 Swollen legs Varicose veins or History of unexplained or recurrent spontaneous Oral contraceptives or hormone replacement Sepsis (< 1 month) Serious lung disease, including pneumonia (< 1 month) Abnormal pulmonary function Acute myocardial infarction Congestive heart failure (< 1 month) History of inflammatory bowel disease Medical patient at bed rest Age 61-74 Arthroscopic surgery Major open surgery (> 45 min) Laparoscopic surgery (> 45 min) Malignancy Confined to bed (> 72 hours) Immobilizing plaster cast Central venous access Age >= 75 History of VTE Family history of VTE Factor V Leiden Prothrombin [id number] Lupus anticoagulant Anticardiolipin antibodies Elevated serum homocysteine Heparin-induced thrombocytopenia Other congenital or acquired thrombophilia Stroke (< 1 month) Elective arthroplasty Hip, pelvis, or leg fracture Acute spinal cord injury (< 1 month) Prophylaxis Regimen: Total Risk Factor Score Risk Level Prophylaxis Regimen 0-1 Low Early ambulation 2 Moderate Order ONE of the following: *Sequential Compression Device (SCD) *Heparin 5000 units SQ BID 3-4 Higher Order ONE of the following medications: *Heparin 5000 units SQ TID *Enoxaparin/Lovenox 40 mg SQ daily (WT < 150 kg, CrCl > 30 mL/min) *Enoxaparin/Lovenox 30 mg SQ daily (WT < 150 kg, CrCl > 10-29 mL/min) *Enoxaparin/Lovenox 30 mg SQ BID (WT < 150 kg, CrCl > 30 mL/min) AND/OR *Sequential Compression Device (SCD) 5 or more Highest Order ONE of the following medications: *Heparin 5000 units SQ TID (Preferred with Epidurals) *Enoxaparin/Lovenox 40 mg SQ daily (WT < 150 kg, CrCl > 30 mL/min) *Enoxaparin/Lovenox 30 mg SQ daily (WT < 150 kg, CrCl > 10-29 mL/min) *Enoxaparin/Lovenox 30 mg SQ BID (WT < 150 kg, CrCl > 30 mL/min) AND *Sequential Compression Device (SCD) Assessment and Plan - Diagnosis (1) Encounter for induction of labor Code(s): Z34.90 - Encounter for supervision of normal , unspecified, unspecified trimester Status: Acute (2) Type 2 diabetes mellitus affecting in third trimester, antepartum Code(s): O24.113 - Pre-existing type 2 diabetes mellitus, in , third trimester Status: Acute (3) 39 weeks gestation of Code(s): Z3A.39 - 39 weeks gestation of Status: Acute - Plan Discussed with the patient and her there is a vertex presentation. Her pelvis is adequate. And she understands she is for a trial of labor. Pelvis tested to 7. 5 pounds without incident. Discussed with the patient she has a favorable felt pelvis a favorable cervix there would be no benefit in sending her home in case this is an unstable lie patient agrees with plan of care but is amiable to as well as we discussed pain management including epidural analgesia as needed.
[2018-10-19] MEDS ORDERED: Citric Acid/Sodium Citrate Liq 30 ML UDC PO SCH (09:45)
[2018-10-19 09:49] LABS: Baso % (Auto) 0.5 % (0.0-2.0); Eos % (Auto) 0.5 % (0.0-4.0); Hematocrit 35.7 % (35.0-46.0); Lymph # (Auto) 1.9 th/mm3 (1.0-4.8); Lymph % (Auto) 22.6 % (9.0-44.0); Mean Corpuscular HGB Conc 33.6 % (32.0-36.0); Mean Corpuscular Hemoglobin 26.9 pg (27.0-34.0); Mean Corpuscular Volume 80.1 fL (80.0-100.0); Mean Platelet Volume 8.5 fL (7.0-11.0); Mono # (Auto) 0.5 th/mm3 (0.0-0.9); Mono % (Auto) 6.3 % (0.0-8.0); Neut # (Auto) 5.8 th/mm3 (1.8-7.7); Neut % (Auto) 70.1 % (16.0-70.0); Platelet Count 179 th/mm3 (150-450); Red Blood Count 4.45 mil/mm3 (4.00-5.30); Red Cell Distribution Width 14.9 % (11.6-17.2); White Blood Count 8.2 th/mm3 (4.0-11.0)
[2018-10-19] MEDS ORDERED: Oxytocin 30 Units/500ml Premix 30 UNITS/500 ML BAG IV.SIG ONE (10:00)
[2018-10-19 10:30] LABS: Bacteria,Urine Moderate /hpf; Bilirubin,Urine Negative (Negative); Clarity,Urine Cloudy (Clear); Color,Urine Yellow (Yellw/Straw); Glucose,Urine (UA) Negative (Negative); Leukocyte Esterase,Urine Large (Negative); Mucus,Urine Few /lpf (Occasional); Nitrite,Urine Negative (Negative); Specific Gravity,Urine 1.012 (1.002-1.035); Squamous Epithelial Cell,Urine 11 /hpf (0-5)
[2018-10-19 12:34] LABS: Albumin 2.6 g/dL (3.4-5.0); Anion Gap 6 meq/L (5-15); Aspartate Aminotransferase 13 U/L (15-37); Blood Urea Nitrogen 6 mg/dL (7-18); Calcium 8.9 mg/dL (8.5-10.1); Carbon Dioxide 20.6 meq/L (21.0-32.0); Chloride 109 meq/L (98-107); Glomerular Filtration Rate Greater Than 89 mL/min (>89); Glucose,Random 108 mg/dL (74-106); Potassium 4.4 meq/L (3.5-5.1); Sodium 136 meq/L (136-145)
[2018-10-19 12:36] LABS: Alanine Aminotransferase 11 U/L (10-53)
[2018-10-19 12:38] LABS: Alkaline Phosphatase 142 U/L (45-117); Total Protein 6.5 g/dL (6.4-8.2)
[2018-10-19] MEDS ORDERED: Benzocaine 20% Top Spray 60 ML Can TOPICAL PRN (12:55)
[2018-10-19] MEDS ORDERED: Bisacodyl 10 MG Supp RECTAL PRN (12:55)
[2018-10-19] MEDS ORDERED: Witch Hazel 50%/Glyderin 12.5% 40 Pad Jar RECTAL PRN (12:55)
[2018-10-19] MEDS ORDERED: Oxytocin 30 Units/500ml Premix 30 UNITS/500 ML BAG IV.CONT PRN (12:55)
--- NOTE | 2018-10-19 13:00 | P.OBDELI ---
Weeks Gestation: 39 Artificial Rupture of Membrane: Yes Anesthesia: None Episiotomy: none Vaginal Delivery: Normal Presentation: Occiput anterior Nuchal Cord: None Delayed Cord Clamping (45 sec): Yes Placenta: Spontaneous delivery Laceration: None Infant: Male Male A Infant Delivery Date: 10/19/18 Infant Delivery Time: 12:49 Weight: 4.515 kg score (1 min): 8 score (5 min): 9
[2018-10-19] MEDS: Insulin NovoLOG Aspart Correctional Sugar Inj SQ SCH ×3 (14:18→21:13)
[2018-10-19] MEDS: Acetaminophen 325 MG Tablet PO PRN (19:16)
[2018-10-19 20:15] VITALS: RESP 18
[2018-10-19] MEDS: Senna/Docusate Sodium 8.6/50 MG Tablet PO SCH (21:16)
[2018-10-20] MEDS: Insulin NovoLOG Aspart Correctional Sugar Inj SQ SCH ×4 (08:20→22:17)
--- NOTE | 2018-10-20 08:33 | P.PNOB ---
Subjective Post day: 1 Interval history: day # 1. AFVSS overnight. Pain well-controlled with tylenol and motrin. Decreased lochia. Denies dysuria. No breast tenderness. She is feeding the baby via breast and bottle. Appetite good. No nausea or vomiting. Passing flatus. No bowel movements. Ambulating well. Denies calf pain, shortness of breath, or cough. Otherwise, she is doing well this morning and has no other complaints. She would like depo-provera for control. Objective Vital Signs/I&O: Vital Signs 10/19/18 09:10 10/19/18 09:25 10/19/18 09:32 Temperature 97.9 F Pulse Rate 90 94 H 87 Respiratory Rate 18 Blood Pressure 142/85 H 10/19/18 09:35 10/19/18 09:40 10/19/18 09:59 Temperature Pulse Rate 86 85 79 Respiratory Rate Blood Pressure 131/77 10/19/18 10:23 10/19/18 10:25 10/19/18 10:55 Temperature Pulse Rate 74 77 81 Respiratory Rate Blood Pressure 132/83 147/89 H 10/19/18 11:40 10/19/18 11:53 10/19/18 11:55 Temperature 97.3 F L Pulse Rate 80 89 Respiratory Rate 18 Blood Pressure 128/99 H 10/19/18 12:25 10/19/18 12:50 10/19/18 13:00 Temperature Pulse Rate 89 80 89 Respiratory Rate Blood Pressure 150/92 H 10/19/18 13:15 10/19/18 13:30 10/19/18 13:32 Temperature Pulse Rate 93 H 80 Respiratory Rate 18 Blood Pressure 151/79 H 137/83 10/19/18 13:45 10/19/18 15:00 10/19/18 20:00 Temperature 97.8 F 98.0 F Pulse Rate 91 H 85 67 Respiratory Rate 18 16 18 Blood Pressure 94/61 L 132/70 138/75 Intake & Output 10/19/18 10/20/18 10/20/18 18:59 06:59 18:59 Weight 79.379 kg Other: Weight On Admission 175 kg Result Diagrams: 10/19/18 09:30 10/19/18 09:30 Objective Remarks: GENERAL: Well-nourished, well-developed patient. Sitting up in bed, feeding baby. CARDIOVASCULAR: Regular rate and rhythm without murmurs, gallops, or rubs. RESPIRATORY: Breath sounds equal bilaterally. No accessory muscle use. ABDOMEN/GI: Abdomen soft, non-tender. Fundus: Firm, non-tender at umbilicus. GENITOURINARY: Light to moderate bleeding. EXTREMITIES: No cyanosis or edema, non-tender, without signs of DVT. Medications and IVs: Active Medications Acetaminophen (Tylenol) 650 mg PO Q4H PRN PRN Reason: PAIN SCALE 1 TO 2 Last Admin: 10/19/18 19:16 Dose: 650 mg Al Hydroxide/Mg Hydroxide (Milk Of Magnesia Liq) 30 ml PO Q12H PRN PRN Reason: Mild Constipation Benzocaine (Americaine 20% Top [place]) 1 spray TOPICAL Q4H PRN PRN Reason: For Perineum Discomfort Bisacodyl (Dulcolax Supp) 10 mg RECTAL DAILY PRN PRN Reason: SEVERE CONSITIPATION Dextrose (D50w Vial) 50 ml IV.PUSH UNSCH PRN PRN Reason: PER HYPOGLYCEMIA PROTOCOL Glucagon (Glucagon Inj) 1 mg OTHER UNSCH PRN PRN Reason: for Hypoglycemia Protocol Oxytocin (Pitocin 30 Units/Ns 500 Ml Premix) 30 units in 500 mls @ 2 mls/hr IV.SIG TITRATE PRN; Protocol PRN Reason: For induction of labor Last Admin: 10/19/18 10:21 Dose: 2 milliunit/min, 2 mls/hr Oxytocin (Pitocin 30 Units/Ns 500 Ml Premix) 30 units in 500 mls @ 100 mls/hr IV.CONT UNSCH PRN PRN Reason: Heavy bleeding Ibuprofen (Motrin) 800 mg PO Q8H PRN PRN Reason: For Cramping Last Admin: 10/19/18 21:15 Dose: 800 mg Insulin Aspart (Novolog Insulin Correctional Sugar Inj) 0 unit SQ ACHS EDGAR; Protocol Last Admin: 10/19/18 21:13 Dose: 1 unit Lactulose (Lactulose Liq) 30 ml PO DAILY PRN PRN Reason: SEVERE CONSITIPATION Naloxone HCl (Narcan Inj) 0.1 mg IV.PUSH Q2M PRN PRN Reason: for opiate reversal Ondansetron HCl (Zofran Odt) 4 mg PO Q6H PRN PRN Reason: NAUSEA OR VOMITING Senna/Docusate Sodium (Nena-Colace) 1 tab PO BID [facility] Last Admin: 10/19/18 21:16 Dose: 1 tab Sennosides (Senokot) 17.2 mg PO Q12H PRN PRN Reason: Moderate Constipation Sodium Chloride (Ns Flush) 2 ml IV.FLUSH BID [facility] Last Admin: 10/19/18 21:16 Dose: 2 ml Sodium Chloride (Ns Flush) 2 ml IV.FLUSH UNSCH PRN PRN Reason: FLUSH AFTER USING IV ACCESS [place]/Glycerin (Tucks Pads) 1 applicatio RECTAL QID PRN PRN Reason: HEMORRHOIDS Assessment and Plan - Diagnosis (1) Vaginal delivery Code(s): O80 - Encounter for full-term uncomplicated delivery Status: Acute (2) Hx gestational diabetes Code(s): Z86.32 - Personal history of gestational diabetes Status: Acute - Plan 28 y/o who is PPD# 1 s/p . -Continue routine care. -Tylenol and Motrin as needed for pain. -Encouraged OOB. Advised pelvic rest for 6 wks. -Will need a f/u appt. within 6 wks. - control: Depo-provera shot ordered -Anticipate discharge later today, or tomorrow based on pediatric team's decision to discharge baby Hx of GDM -SSI and hypoglycemia protocol -Will restart home glyburide 5mg PO BID -Bedside accuchecks every 6 hrs OB hospitalist, Dr. Couch
[2018-10-20] MEDS ORDERED: medroxyPROGESTERone Acetate Inj 150 MG/ML Syringe IM ONE (08:34)
[2018-10-20] MEDS: Senna/Docusate Sodium 8.6/50 MG Tablet PO SCH ×2 (10:17→22:17)
[2018-10-20] MEDS ORDERED: Diphtheria/Tetanus/Pertussis Vaccine Inj 0.5 ML Syringe IM ONE (16:30)
[2018-10-20] MEDS ORDERED: glyBURIDE 2.5 MG Tablet PO SCH (17:00)
[2018-10-21] MEDS: Insulin NovoLOG Aspart Correctional Sugar Inj SQ SCH (08:43)
[2018-10-21] MEDS: Senna/Docusate Sodium 8.6/50 MG Tablet PO SCH (08:44)
[2018-10-21] MEDS: Acetaminophen 325 MG Tablet PO PRN (08:50)
[2018-10-21 08:55] VITALS: BP 134/81; PULSE 66
[2018-10-21 08:56] VITALS: TEMP 98.5
--- NOTE | 2018-10-21 10:08 | P.PNOB ---
Subjective Post day: 2 Interval history: Patient is a 28-year-old delivered at 39 weeks. Patient is day 2 after . Patient's pain is well-controlled. Patient reports eating and drinking without any nausea or vomiting. Patient reports minimal bleeding. Patient has passed gas but no bowel movements. Patient is walking without lower extremity pain or shortness of breath. Patient reports desire for contraception and breast-feeding. Objective Vital Signs/I&O: Vital Signs 10/20/18 19:51 10/21/18 08:00 Temperature 98.1 F 98.5 F Pulse Rate 70 66 Respiratory Rate 18 18 Blood Pressure 149/97 H 134/81 Result Diagrams: 10/19/18 09:30 10/19/18 09:30 Objective Remarks: GENERAL: Well-nourished, well-developed patient. CARDIOVASCULAR: Regular rate and rhythm without murmurs, gallops, or rubs. RESPIRATORY: Breath sounds equal bilaterally. No accessory muscle use. ABDOMEN/GI: Abdomen soft, non-tender. Fundus: Firm, non-tender at umbilicus. GENITOURINARY: Light to moderate bleeding. EXTREMITIES: No cyanosis or edema, non-tender, without signs of DVT. Medications and IVs: Active Medications Acetaminophen (Tylenol) 650 mg PO Q4H PRN PRN Reason: PAIN SCALE 1 TO 2 Last Admin: 10/21/18 08:50 Dose: 650 mg Al Hydroxide/Mg Hydroxide (Milk Of Goldie Ludwig) 30 ml PO Q12H PRN PRN Reason: Mild Constipation Benzocaine (Americaine 20% [place]) 1 spray TOPICAL Q4H PRN PRN Reason: For Perineum Discomfort Bisacodyl (Dulcolax Supp) 10 mg RECTAL DAILY PRN PRN Reason: SEVERE CONSITIPATION Cephalexin Monohydrate (Keflex) 500 mg PO Q12H [facility] Last Admin: 10/21/18 08:43 Dose: Not Given Dextrose (D50w Vial) 50 ml IV.PUSH UNSCH PRN PRN Reason: PER HYPOGLYCEMIA PROTOCOL Glucagon (Glucagon Inj) 1 mg OTHER UNSCH PRN PRN Reason: for Hypoglycemia Protocol Glyburide (Diabeta) 5 mg PO BID@0800,1700 [facility] Last Admin: 10/21/18 08:44 Dose: 5 mg Oxytocin (Pitocin 30 Units/Ns 500 Ml Premix) 30 units in 500 mls @ 2 mls/hr IV.SIG TITRATE PRN; Protocol PRN Reason: For induction of labor Last Admin: 10/19/18 10:21 Dose: 2 milliunit/min, 2 mls/hr Oxytocin (Pitocin 30 Units/Ns 500 Ml Premix) 30 units in 500 mls @ 100 mls/hr IV.CONT UNSCH PRN PRN Reason: Heavy bleeding Ibuprofen (Motrin) 800 mg PO Q8H PRN PRN Reason: For Cramping Last Admin: 10/21/18 08:50 Dose: 800 mg Insulin Aspart (Novolog Insulin Correctional Sugar Inj) 0 unit SQ ACHS [facility]; Protocol Last Admin: 10/21/18 08:43 Dose: Not Given Lactulose (Lactulose Liq) 30 ml PO DAILY PRN PRN Reason: SEVERE CONSITIPATION Naloxone HCl (Narcan Inj) 0.1 mg IV.PUSH Q2M PRN PRN Reason: for opiate reversal Ondansetron HCl (Zofran Odt) 4 mg PO Q6H PRN PRN Reason: NAUSEA OR VOMITING Senna/Docusate Sodium (Nena-Colace) 1 tab PO BID [facility] Last Admin: 10/21/18 08:44 Dose: 1 tab Sennosides (Senokot) 17.2 mg PO Q12H PRN PRN Reason: Moderate Constipation Sodium Chloride (Ns Flush) 2 ml IV.FLUSH BID [facility] Last Admin: 10/21/18 08:44 Dose: Not Given Sodium Chloride (Ns Flush) 2 ml IV.FLUSH UNSCH PRN PRN Reason: FLUSH AFTER USING IV ACCESS Witch [place]y/Glycerin (Tucks Pads) 1 applicatio RECTAL QID PRN PRN Reason: HEMORRHOIDS Assessment and Plan - Diagnosis (1) Vaginal delivery Code(s): O80 - Encounter for full-term uncomplicated delivery Status: Acute (2) Hx gestational diabetes Code(s): Z86.32 - Personal history of gestational diabetes Status: Acute - Plan 28 y/o who is PPD# 2 s/p . -Continue routine care. -Tylenol and Motrin as needed for pain. -Encouraged OOB. Advised pelvic rest for 6 wks. -Will need a f/u appt. within 6 wks. - control: Depo-provera shot Hx of GDM -SSI and hypoglycemia protocol not necessary at this point, since glucose usually returns to normal - F/u w/PCP outpatient. Consider 75 g 2 hr GTT 6-12 weeks after delivery to screen for DM DC today dw OB hospitalist
== END 2018-10-21 15:30 | disposition home or self-care (01) | DRG 807 ==
LOC: H2E 08:44 → H1EA 14:13
PROVIDERS: ADMIT Obstetrics & Gynecology Maternal & Fetal Medicine; ATTEND Obstetrics & Gynecology Maternal & Fetal Medicine
CPT/HCPCS: 59025; 80053; 81001; 82948; 82962; 85025; 86403; 86900; 86901; 87086; 90715; G0481; G0483; J1815; J2590; J7120